=== PATIENT | male | born 1990 | race African-American/Black ===

== ENCOUNTER 2017-07-24 23:47 | Emergency (ER) | payer OTHER | END 2017-07-25 02:09 | disposition home or self-care (01) | LOC: FTE 23:47 | DX: M20.11 Hallux valgus (acquired), right foot (principal) | CPT/HCPCS: 99283; Z7502 ==

== ENCOUNTER 2017-07-30 14:00 | Emergency (ER) | payer OTHER | END 2017-07-30 14:41 | disposition home or self-care (01) | LOC: E/R 14:00 | DX: M20.11 Hallux valgus (acquired), right foot (principal) | CPT/HCPCS: 99282; Z7502 ==